=== PATIENT | female | born 1995 | race Caucasian/White ===

== ENCOUNTER 2016-10-12 15:45 | Emergency (ER) | payer MEDICAID ==
[~2016-10-12] VITALS: Ht 167.6 cm; Wt 71.5 kg
[~2016-10-12 15:45] MED LIST: OTC PAIN MED
[2016-10-12 18:28] VITALS: BP 113/68
== END 2016-10-12 19:02 | disposition home or self-care (01) ==
LOC: EMS 15:46
DX: S33.5XXA Sprain of ligaments of lumbar spine, initial encounter (principal); N39.0 Urinary tract infection, site not specified; X58.XXXA Exposure to other specified factors, initial encounter; Y93.89 Activity, other specified; Y92.89 Other specified places as the place of occurrence of the external cause; Y99.8 Other external cause status
CPT/HCPCS: 81025; 99283

== ENCOUNTER 2017-02-13 20:24 | Emergency (ER) | payer SELFPAY ==
[~2017-02-13] VITALS: Ht 167.6 cm; Wt 74.5 kg
[2017-02-13] MEDS ORDERED: CYCLOBENZAPRINE HCL 10 MG TABLET PO ONE (22:30)
[2017-02-13 23:07] VITALS: BP 150/118
[2017-02-13] MEDS ORDERED: KETOROLAC TROMETHAMINE 60 MG/2 ML VIAL IM ONE (23:15)
== END 2017-02-13 23:17 | disposition home or self-care (01) ==
LOC: EMS 20:26
DX: S16.1XXA Strain of muscle, fascia and tendon at neck level, initial encounter (principal); V43.52XA Car driver injured in collision with other type car in traffic accident, initial encounter; Y93.89 Activity, other specified; Y92.481 Parking lot as the place of occurrence of the external cause; Y99.8 Other external cause status
CPT/HCPCS: 70450; 72125; 81025; 96372; 99284; J1885

== ENCOUNTER 2017-08-03 14:16 | Emergency (ER) | payer SELFPAY ==
[~2017-08-03] VITALS: Ht 167.6 cm; Wt 75.5 kg
[2017-08-03] MEDS ORDERED: NORE1TAB34 PO (14:23)
[2017-08-03] MEDS ORDERED: KETOROLAC TROMETHAMINE 60 MG/2 ML VIAL IM ONE (15:30)
[2017-08-03 17:28] VITALS: BP 139/84
[2017-08-03 18:16] LABS: BILIRUBIN,URINE NEGATIVE (NEGATIVE); GLUCOSE, URINE (UA) NEGATIVE (NEGATIVE); KETONES,URINE NEGATIVE (NEGATIVE); LEUKOCYTE ESTERASE ,URINE SMALL (NEGATIVE); NITRATE,URINE NEGATIVE (NEGATIVE); OCCULT BLOOD,URINE MODERATE (NEGATIVE); PH,URINE 5.5 (5.0-8.0); PROTEIN,URINE NEGATIVE (NEGATIVE); UROBILINOGEN,URINE 0.2 mg/dL (<=1.0)
[2017-08-03 18:28] LABS: APPEARANCE,URINE HAZY (CLEAR)
[2017-08-03 18:34] LABS: BACTERIA,URINE Few /HPF (None Seen); RBC,URINE 0-2 /HPF (0-2); SQUAMOUS EPITHELIAL CELL,UR Few /LPF (None Seen)
== END 2017-08-03 18:35 | disposition home or self-care (01) ==
LOC: EMS 14:17
DX: S33.5XXA Sprain of ligaments of lumbar spine, initial encounter (principal); M62.830 Muscle spasm of back; X58.XXXA Exposure to other specified factors, initial encounter; Y93.89 Activity, other specified; Y92.89 Other specified places as the place of occurrence of the external cause; Y99.8 Other external cause status
CPT/HCPCS: 81001; 81025; 96372; 99283; J1885

== ENCOUNTER 2018-01-31 13:08 | Emergency (ER) | payer OTHER ==
[~2018-01-31] VITALS: Ht 167.6 cm; Wt 76.4 kg
[~2018-01-31 13:08] MED LIST changes: +NORE1TAB34 PO; -OTC PAIN MED
[2018-01-31] MEDS ORDERED: AMOX500T2 PO (13:13)
[2018-01-31] MEDS ORDERED: MO6B PO (13:14)
[2018-01-31 13:55] VITALS: BP 141/92
== END 2018-01-31 14:06 | disposition home or self-care (01) ==
LOC: EMS 13:09
DX: K08.89 Other specified disorders of teeth and supporting structures (principal)
CPT/HCPCS: 99283

== ENCOUNTER 2018-02-02 14:15 | Emergency (ER) | payer OTHER ==
[~2018-02-02] VITALS: Ht 167.6 cm; Wt 81.8 kg
[~2018-02-02 14:15] MED LIST changes: +AMOX500T2 PO; +MO6B PO; -NORE1TAB34 PO
[2018-02-02 16:10] VITALS: BP 151/86
== END 2018-02-02 16:17 | disposition home or self-care (01) ==
LOC: EMS 14:16
DX: K08.89 Other specified disorders of teeth and supporting structures (principal)
CPT/HCPCS: 99281

== ENCOUNTER 2018-04-12 18:09 | Emergency (ER) | payer OTHER ==
[~2018-04-12] VITALS: Ht 167.6 cm; Wt 85.0 kg
[2018-04-12] MEDS ORDERED: SUMA100T PO (18:22)
[2018-04-12] MEDS ORDERED: METOCLOPRAMIDE HCL 5 MG/ML 2 ML VIAL IVP ONE (18:30)
[2018-04-12] MEDS ORDERED: SODIUM CHLORIDE 0.9% 1,000 ML IV ONE (18:30)
[2018-04-12] MEDS ORDERED: DiphenhydrAMINE HCL 50 MG/ML VIAL IVP ONE (18:30)
[2018-04-12] MEDS ORDERED: KETOROLAC TROMETHAMINE 30 MG/ML VIAL IVP ONE (18:30)
[2018-04-12 19:26] VITALS: BP 130/100
== END 2018-04-12 19:48 | disposition home or self-care (01) ==
LOC: EMS 18:09
DX: G43.909 Migraine, unspecified, not intractable, without status migrainosus (principal); Z79.899 Other long term (current) drug therapy
CPT/HCPCS: 96374; 96375; 99284; J1200; J1885; J2765; J7030

== ENCOUNTER 2018-08-02 13:11 | Emergency (ER) | payer OTHER ==
[~2018-08-02] VITALS: Ht 172.7 cm; Wt 81.8 kg
[~2018-08-02 13:11] MED LIST changes: -AMOX500T2 PO; -MO6B PO; +SUMA100T PO
[2018-08-02] MEDS ORDERED: ACET-66 PO (13:14)
[2018-08-02] MEDS ORDERED: BIRTH CONTROL PO (13:14)
[2018-08-02] MEDS ORDERED: SODIUM CHLORIDE 0.9% 1,000 ML IV ONE (13:49)
[2018-08-02] MEDS ORDERED: METOCLOPRAMIDE HCL 5 MG/ML 2 ML VIAL IVP ONE (14:00)
[2018-08-02] MEDS ORDERED: KETOROLAC TROMETHAMINE 30 MG/ML VIAL IVP ONE (14:00)
[2018-08-02 14:12] LABS: APPEARANCE,URINE CLEAR (CLEAR); BILIRUBIN,URINE NEGATIVE (NEGATIVE); GLUCOSE, URINE (UA) NEGATIVE (NEGATIVE); KETONES,URINE TRACE mg/dL (NEGATIVE); LEUKOCYTE ESTERASE ,URINE NEGATIVE (NEGATIVE); NITRATE,URINE NEGATIVE (NEGATIVE); OCCULT BLOOD,URINE LARGE (NEGATIVE); PROTEIN,URINE TRACE (NEGATIVE); UROBILINOGEN,URINE 0.2 mg/dL (<=1.0)
[2018-08-02 14:20] LABS: BACTERIA,URINE Rare /HPF (None Seen); SQUAMOUS EPITHELIAL CELL,UR Rare /LPF (None Seen); WBC,URINE 0-2 /HPF (0-5)
[2018-08-02 14:20] LABS: BASOPHILS % (AUTO) 0.4 % (0.0-2.0); EOSINOPHILS % (AUTO) 0.2 % (1.0-6.0); HEMOGLOBIN 14.9 g/dL (12.0-16.0); LYMPHOCYTES # (AUTO) 1.5 K/uL (1.0-4.8); MEAN CORPUSCULAR HEMOGLOBIN 29.3 pg (26.0-34.0); MEAN CORPUSCULAR HGB CONC 33.1 G/dL (31.0-37.0); MEAN CORPUSCULAR VOLUME 88 fL (80-100); MONOCYTES # (AUTO) 0.3 K/uL (0.1-1.0); MONOCYTES % (AUTO) 2.8 % (2.0-9.0); NEUTROPHILS # (AUTO) 8.2 K/uL (1.8-7.7); NEUTROPHILS % (AUTO) 81.6 % (40.0-70.0); PLATELET COUNT (AUTO) 258 K/uL (150-450); RED CELL DISTRIBUTION WIDTH 13.9 % (11.5-14.5)
[2018-08-02 14:34] LABS: ANION GAP 13 mmol/L (8-16); CALCIUM, TOTAL 9.4 mg/dL (8.8-10.5); CARBON DIOXIDE 25 mmol/L (22-29); CHLORIDE 104 mmol/L (98-107); CREATININE 0.51 mg/dL (0.60-1.30); GLOMERULAR FILTR. RATE CALC > 60 mL/min (>60); GLUCOSE,RANDOM 94 mg/dL (70-110); POTASSIUM 3.9 mmol/L (3.5-5.1); SODIUM SERUM 142 mmol/L (136-145); UREA NITROGEN, BLOOD 8 mg/dL (7-18)
[2018-08-02 14:38] LABS: ALANINE AMINOTRANSFERASE 25 U/L (12-78); ALBUMIN 3.5 g/dL (3.4-5.0); ALKALINE PHOSPHATASE 73 U/L (46-116); ASPARTATE AMINOTRANSFERASE 20 U/L (15-37); BILIRUBIN,TOTAL 0.3 mg/dL (0.1-1.0); TOTAL PROTEIN, SERUM 7.8 g/dL (6.4-8.2)
[2018-08-02 16:12] VITALS: BP 139/87
== END 2018-08-02 16:53 | disposition home or self-care (01) ==
LOC: EMS 13:12
DX: G43.909 Migraine, unspecified, not intractable, without status migrainosus (principal); Z79.899 Other long term (current) drug therapy
CPT/HCPCS: 36415; 80053; 81001; 85025; 85379; 96374; 96375; 99283; J1885; J2765; J7030

== ENCOUNTER 2019-04-30 22:55 | Emergency (ER) | payer OTHER, MEDICAID ==
[~2019-04-30] VITALS: Ht 167.6 cm; Wt 86.4 kg
[~2019-04-30 22:55] MED LIST changes: +ACET-66 PO; +BIRTH CONTROL PO
[2019-05-01] MEDS ORDERED: SODIUM CHLORIDE 0.9% 1,000 ML IV ONE ×2 (00:15→01:30)
[2019-05-01 00:45] LABS: BASOPHILS % (AUTO) 0.6 % (0.0-2.0); EOSINOPHILS % (AUTO) 0.6 % (1.0-6.0); HEMATOCRIT 37.3 % (36-46); HEMOGLOBIN 12.1 g/dL (12.0-16.0); LYMPHOCYTES # (AUTO) 1.9 K/uL (1.0-4.8); MEAN CORPUSCULAR HGB CONC 32.5 G/dL (31.0-37.0); MEAN CORPUSCULAR VOLUME 83 fL (80-100); MONOCYTES # (AUTO) 0.8 K/uL (0.1-1.0); MONOCYTES % (AUTO) 8.8 % (2.0-9.0); NEUTROPHILS # (AUTO) 5.8 K/uL (1.8-7.7); PLATELET COUNT (AUTO) 200 K/uL (150-450); RED BLOOD CELL COUNT(AUTO) 4.49 MIL/uL (4.00-5.20); RED CELL DISTRIBUTION WIDTH 15.2 % (11.5-14.5)
[2019-05-01 00:55] LABS: ANION GAP 7 mmol/L (8-16); CALCIUM, TOTAL 8.6 mg/dL (8.8-10.5); CARBON DIOXIDE 29 mmol/L (22-29); CHLORIDE 108 mmol/L (98-107); CREATININE 0.77 mg/dL (0.60-1.30); GLOMERULAR FILTR. RATE CALC > 60 mL/min (>60); GLUCOSE,RANDOM 107 mg/dL (70-110); POTASSIUM 3.7 mmol/L (3.5-5.1); SODIUM SERUM 144 mmol/L (136-145); UREA NITROGEN, BLOOD 6 mg/dL (7-18)
[2019-05-01 01:06] LABS: ALANINE AMINOTRANSFERASE 14 U/L (12-78); ALBUMIN 3.5 g/dL (3.4-5.0); ALKALINE PHOSPHATASE 82 U/L (46-116); ASPARTATE AMINOTRANSFERASE 8 U/L (15-37); BILIRUBIN,TOTAL 0.2 mg/dL (0.1-1.0); HCG,QUANTITATIVE 174 mIU/mL (0-6); TOTAL PROTEIN, SERUM 7.1 g/dL (6.4-8.2)
[2019-05-01 01:52] LABS: APPEARANCE,URINE CLOUDY (CLEAR); BILIRUBIN,URINE NEGATIVE (NEGATIVE); GLUCOSE, URINE (UA) NEGATIVE (NEGATIVE); KETONES,URINE NEGATIVE (NEGATIVE); LEUKOCYTE ESTERASE ,URINE SMALL (NEGATIVE); NITRATE,URINE NEGATIVE (NEGATIVE); OCCULT BLOOD,URINE LARGE (NEGATIVE); PH,URINE 6.5 (5.0-8.0); PROTEIN,URINE TRACE (NEGATIVE); UROBILINOGEN,URINE 0.2 mg/dL (<=1.0)
[2019-05-01 01:59] LABS: AMPHET/METH SCREEN,URINE NEGATIVE (NEGATIVE); BARBITURATE SCREEN, URINE NEGATIVE (NEGATIVE); BENZODIAZEPINES SCREEN,URINE NEGATIVE (NEGATIVE); CANNABINOID SCREEN,URINE NEGATIVE (NEGATIVE); COCAINE SCREEN,URINE NEGATIVE (NEGATIVE); METHADONE SCREEN, URINE NEGATIVE (NEGATIVE); OPIATE SCREEN,URINE NEGATIVE (NEGATIVE); PHENCYCLIDINE SCREEN,URINE NEGATIVE (NEGATIVE)
[2019-05-01 02:01] LABS: RBC,URINE >100 /HPF (0-2)
[2019-05-01 02:02] LABS: BACTERIA,URINE None Seen /HPF (None Seen); SQUAMOUS EPITHELIAL CELL,UR Few /LPF (None Seen)
[2019-05-01] MEDS ORDERED: LORazepam 2 MG/ML VIAL IVP ONE (02:30)
[2019-05-01 03:03] VITALS: BP 141/91
== END 2019-05-01 03:20 | disposition home or self-care (01) ==
LOC: EMS 22:55
DX: R00.2 Palpitations (principal); E86.0 Dehydration; F41.9 Anxiety disorder, unspecified; R06.02 Shortness of breath; R00.0 Tachycardia, unspecified; G43.909 Migraine, unspecified, not intractable, without status migrainosus; Z87.59 Personal history of other complications of pregnancy, childbirth and the puerperium
CPT/HCPCS: 36415; 80053; 80307; 81001; 84702; 85025; 93005; 96361; 96374; 99285; J2060; J7030

== ENCOUNTER 2022-02-18 21:47 | Emergency (ER) | payer MEDICAID, OTHER ==
[~2022-02-18 21:47] MED LIST changes: -ACET-66 PO; -BIRTH CONTROL PO
[2022-02-18 21:51] VITALS: BP 141/78
[2022-02-18] MEDS ORDERED: CORTSOL AU (22:00)
== END 2022-02-18 22:10 | disposition home or self-care (01) ==
LOC: EMS 21:47
DX: H60.92 Unspecified otitis externa, left ear (principal); G43.909 Migraine, unspecified, not intractable, without status migrainosus; Z87.898 Personal history of other specified conditions
CPT/HCPCS: 99283

== ENCOUNTER 2023-01-11 20:20 | Emergency (ER) | payer OTHER ==
[~2023-01-11] VITALS: Ht 167.6 cm; Wt 88.6 kg
[~2023-01-11 20:20] MED LIST changes: +CORTSOL AU
[2023-01-11 20:22] VITALS: BP 137/105; PULSE 100; RESP 16; TEMP 99.2
[2023-01-11] MEDS ORDERED: IBUPROFEN 600 MG TABLET PO ONE (22:45)
== END 2023-01-11 22:58 | disposition home or self-care (01) ==
LOC: EMS 21:41
DX: H60.92 Unspecified otitis externa, left ear (principal); G43.909 Migraine, unspecified, not intractable, without status migrainosus
CPT/HCPCS: 99282; Z7502; Z7610

== ENCOUNTER 2023-04-28 19:46 | Emergency (ER) | payer OTHER ==
[~2023-04-28] VITALS: Ht 167.6 cm; Wt 104.5 kg
[~2023-04-28 19:46] MED LIST changes: -SUMA100T PO; +SUMA100T21 PO
[2023-04-28 20:19] VITALS: BP 135/85; PULSE 74; RESP 13; TEMP 98.3
[2023-04-28] MEDS ORDERED: METOCLOPRAMIDE HCL 5 MG/ML 2 ML VIAL IVP ONE (20:30)
[2023-04-28] MEDS ORDERED: KETOROLAC TROMETHAMINE 30 MG/ML VIAL IVP ONE (20:30)
[2023-04-28] MEDS ORDERED: SODIUM CHLORIDE 0.9% 1,000 ML IV ONE (20:30)
[2023-04-28] MEDS ORDERED: DiphenhydrAMINE HCL 50 MG/ML VIAL IVP ONE (20:30)
[2023-04-28 20:41] LABS: BASOPHILS % (AUTO) 0.5 % (0.0-2.0); EOSINOPHILS % (AUTO) 1.3 % (1.0-6.0); HEMATOCRIT 42.7 % (36-46); LYMPHOCYTES # (AUTO) 1.9 K/uL (1.0-4.8); LYMPHOCYTES % (AUTO) 24.8 % (22.0-44.0); MEAN CORPUSCULAR HEMOGLOBIN 29.1 pg (26.0-34.0); MEAN CORPUSCULAR HGB CONC 32.8 G/dL (31.0-37.0); MEAN CORPUSCULAR VOLUME 89 fL (80-100); MONOCYTES # (AUTO) 0.4 K/uL (0.1-1.0); MONOCYTES % (AUTO) 4.7 % (2.0-9.0); NEUTROPHILS # (AUTO) 5.2 K/uL (1.8-7.7); NEUTROPHILS % (AUTO) 68.7 % (40.0-70.0); PLATELET COUNT (AUTO) 250 K/uL (150-450); RED BLOOD CELL COUNT(AUTO) 4.81 MIL/uL (4.00-5.20); RED CELL DISTRIBUTION WIDTH 14.1 % (11.5-14.5); WHITE BLOOD COUNT (AUTO) 7.5 K/uL (4.5-11.0)
[2023-04-28 20:48] LABS: ANION GAP 7 mmol/L (8-16); CALCIUM, TOTAL 9.1 mg/dL (8.8-10.5); CARBON DIOXIDE 27 mmol/L (22-29); CHLORIDE 105 mmol/L (98-107); CREATININE 0.59 mg/dL (0.60-1.30); GLOMERULAR FILTR. RATE CALC > 60 mL/min (>60); GLUCOSE,RANDOM 138 mg/dL (70-110); POTASSIUM 3.4 mmol/L (3.5-5.1); SODIUM SERUM 139 mmol/L (136-145); UREA NITROGEN, BLOOD 10 mg/dL (7-18)
[2023-04-28 20:54] LABS: ALANINE AMINOTRANSFERASE 52 U/L (12-78); ALBUMIN 3.5 g/dL (3.4-5.0); ALKALINE PHOSPHATASE 112 U/L (46-116); ASPARTATE AMINOTRANSFERASE 25 U/L (15-37); BILIRUBIN,TOTAL 0.1 mg/dL (0.1-1.0); TOTAL PROTEIN, SERUM 7.7 g/dL (6.4-8.2)
== END 2023-04-28 23:04 | disposition home or self-care (01) ==
LOC: EMS 19:47
DX: G43.909 Migraine, unspecified, not intractable, without status migrainosus (principal)
CPT/HCPCS: 99284; 96374; 96375; 96361; 80053; 84703; 85025; 36415; J1200; J1885; J2765; J7030

== ENCOUNTER 2023-04-30 12:00 | Emergency (ER) | payer OTHER ==
[~2023-04-30] VITALS: Ht 167.6 cm; Wt 103.0 kg
[2023-04-30 12:05] VITALS: TEMP 98.1
[2023-04-30] MEDS ORDERED: METOCLOPRAMIDE HCL 5 MG/ML 2 ML VIAL IVP ONE (12:30)
[2023-04-30] MEDS ORDERED: DiphenhydrAMINE HCL 50 MG/ML VIAL IVP ONE (12:30)
[2023-04-30] MEDS ORDERED: ONDANSETRON HCL 4 MG/2 ML VIAL IVP ONE (12:30)
[2023-04-30 12:46] LABS: BASOPHILS % (AUTO) 0.4 % (0.0-2.0); EOSINOPHILS % (AUTO) 0.6 % (1.0-6.0); HEMOGLOBIN 14.4 g/dL (12.0-16.0); LYMPHOCYTES # (AUTO) 1.5 K/uL (1.0-4.8); LYMPHOCYTES % (AUTO) 17.6 % (22.0-44.0); MEAN CORPUSCULAR HEMOGLOBIN 29.6 pg (26.0-34.0); MEAN CORPUSCULAR HGB CONC 33.4 G/dL (31.0-37.0); MEAN CORPUSCULAR VOLUME 89 fL (80-100); MONOCYTES # (AUTO) 0.3 K/uL (0.1-1.0); MONOCYTES % (AUTO) 3.6 % (2.0-9.0); NEUTROPHILS # (AUTO) 6.7 K/uL (1.8-7.7); NEUTROPHILS % (AUTO) 77.8 % (40.0-70.0); PLATELET COUNT (AUTO) 241 K/uL (150-450); RED BLOOD CELL COUNT(AUTO) 4.86 MIL/uL (4.00-5.20); WHITE BLOOD COUNT (AUTO) 8.7 K/uL (4.5-11.0)
[2023-04-30 13:00] LABS: ANION GAP 9 mmol/L (8-16); CALCIUM, TOTAL 9.5 mg/dL (8.8-10.5); CARBON DIOXIDE 26 mmol/L (22-29); CHLORIDE 105 mmol/L (98-107); CREATININE 0.54 mg/dL (0.60-1.30); GLOMERULAR FILTR. RATE CALC > 60 mL/min (>60); GLUCOSE,RANDOM 108 mg/dL (70-110); POTASSIUM 3.6 mmol/L (3.5-5.1); SODIUM SERUM 140 mmol/L (136-145); UREA NITROGEN, BLOOD 7 mg/dL (7-18)
[2023-04-30 13:15] LABS: ALANINE AMINOTRANSFERASE 57 U/L (12-78); ALBUMIN 3.8 g/dL (3.4-5.0); ALKALINE PHOSPHATASE 106 U/L (46-116); ASPARTATE AMINOTRANSFERASE 28 U/L (15-37); BILIRUBIN,TOTAL 0.3 mg/dL (0.1-1.0); HCG,QUANTITATIVE < 1 mIU/mL (0-6)
[2023-04-30 14:25] VITALS: BP 133/82; PULSE 90; RESP 18
== END 2023-04-30 14:31 | disposition home or self-care (01) ==
LOC: EMS 12:29
DX: G43.909 Migraine, unspecified, not intractable, without status migrainosus (principal)
CPT/HCPCS: 99285; 96374; 70450; 96375; 80053; 84702; 85025; 36415; J1200; J2765; J2405

== ENCOUNTER 2023-07-08 22:33 | Emergency (ER) | payer OTHER ==
[~2023-07-08] VITALS: Ht 167.6 cm; Wt 104.0 kg
[2023-07-08 22:52] VITALS: TEMP 98.2
[2023-07-09 01:40] VITALS: BP 124/81; PULSE 97; RESP 17
[2023-07-09] MEDS ORDERED: AMOX500C2 PO (01:41)
[2023-07-09] MEDS ORDERED: IBUP-1492 PO (01:41)
[2023-07-09] MEDS ORDERED: IBUPROFEN 800 MG TABLET PO ONE (01:45)
[2023-07-09] MEDS ORDERED: AMOXICILLIN TRIHYDRATE 250 MG CAPSULE PO ONE (01:45)
== END 2023-07-09 01:52 | disposition home or self-care (01) ==
LOC: EMS 22:34
DX: H66.92 Otitis media, unspecified, left ear (principal); G43.909 Migraine, unspecified, not intractable, without status migrainosus
CPT/HCPCS: 99283

== ENCOUNTER 2023-07-29 23:24 | Emergency (ER) | payer OTHER ==
[~2023-07-29] VITALS: Ht 167.6 cm; Wt 104.5 kg
[~2023-07-29 23:24] MED LIST changes: +AMOX500C2 PO; -CORTSOL AU; +IBUP-1492 PO; -SUMA100T21 PO
[2023-07-29 23:29] VITALS: TEMP 98.3
[2023-07-30 00:58] VITALS: BP 165/96; PULSE 92; RESP 17
== END 2023-07-30 01:00 | disposition home or self-care (01) ==
LOC: EMS 23:24
DX: F41.9 Anxiety disorder, unspecified (principal); G43.909 Migraine, unspecified, not intractable, without status migrainosus; F32.A Depression, unspecified
CPT/HCPCS: 99281; Z7502

== ENCOUNTER 2023-11-10 17:04 | Emergency (ER) | payer OTHER ==
[~2023-11-10] VITALS: Ht 170.2 cm; Wt 98.2 kg
[2023-11-10] MEDS ORDERED: SEMA0.258 SQ (17:10)
[2023-11-10 17:12] VITALS: BP 139/84; PULSE 101; RESP 18; TEMP 98.3
[2023-11-10] MEDS ORDERED: IBUP-1554 PO (18:20)
[2023-11-10] MEDS ORDERED: ACET-66 PO (18:20)
[2023-11-10] MEDS ORDERED: METH-659 PO (18:20)
[2023-11-10] MEDS: IBUPROFEN 600 MG TABLET PO ONE (18:29)
[2023-11-10] MEDS: METHOCARBAMOL 500 MG TABLET PO ONE (18:30)
== END 2023-11-10 18:46 | disposition home or self-care (01) ==
LOC: EMS 17:04
DX: M62.838 Other muscle spasm (principal); F41.9 Anxiety disorder, unspecified; G43.909 Migraine, unspecified, not intractable, without status migrainosus
CPT/HCPCS: 99283

== ENCOUNTER 2024-06-05 17:09 | Emergency (ER) | payer OTHER ==
[~2024-06-05] VITALS: Ht 165.1 cm; Wt 84.1 kg
[~2024-06-05 17:09] MED LIST changes: +ACET-66 PO; -AMOX500C2 PO; -IBUP-1492 PO; +IBUP-1554 PO; +METH-659 PO; +SEMA0.258 SQ
[2024-06-05] MEDS ORDERED: CIPOTIC AS (19:45)
[2024-06-05] MEDS ORDERED: BACTDSB PO (19:45)
[2024-06-05 20:11] VITALS: BP 129/77; PULSE 70; RESP 18; TEMP 97.3; O2SAT 99
== END 2024-06-05 20:15 | disposition home or self-care (01) ==
LOC: EMS 17:09
DX: H66.92 Otitis media, unspecified, left ear (principal); H60.92 Unspecified otitis externa, left ear; F41.9 Anxiety disorder, unspecified; G43.909 Migraine, unspecified, not intractable, without status migrainosus
CPT/HCPCS: 99283; Z7502

== ENCOUNTER 2025-02-26 19:39 | Emergency (ER) | payer OTHER ==
[~2025-02-26] VITALS: Ht 167.6 cm; Wt 94.5 kg
[~2025-02-26 19:39] MED LIST changes: -ACET-66 PO; +BACTDSB PO; +CIPOTIC AS; -METH-659 PO
[2025-02-26] MEDS: IBUPROFEN 600 MG TABLET PO ONE (21:57)
[2025-02-26] MEDS: ACETAMINOPHEN 500 MG TABLET PO ONE (21:57)
[2025-02-26] MEDS ORDERED: ACET-66 PO (22:02)
[2025-02-26 22:22] VITALS: BP 124/67; PULSE 78; RESP 17; TEMP 97.3; O2SAT 100
== END 2025-02-26 22:39 | disposition home or self-care (01) ==
LOC: EMS 19:39
DX: M25.531 Pain in right wrist (principal); G56.01 Carpal tunnel syndrome, right upper limb; R20.0 Anesthesia of skin; F41.9 Anxiety disorder, unspecified
CPT/HCPCS: 99283

== ENCOUNTER 2025-06-14 11:18 | Emergency (ER) | payer OTHER ==
[~2025-06-14] VITALS: Ht 167.6 cm; Wt 91.8 kg
[~2025-06-14 11:18] MED LIST changes: +ACET-66 PO
[2025-06-14 11:29] VITALS: TEMP 98.4
[2025-06-14] MEDS: NAPROXEN 500 MG TABLET PO ONE (13:09)
[2025-06-14] MEDS: ONDANSETRON 4 MG TABLET PO ONE (13:09)
[2025-06-14 14:00] VITALS: BP 147/95; PULSE 99; RESP 17; O2SAT 99
[2025-06-14] MEDS ORDERED: ONDA-104 PO (14:13)
== END 2025-06-14 14:31 | disposition home or self-care (01) ==
LOC: EMS 11:19
DX: G43.909 Migraine, unspecified, not intractable, without status migrainosus (principal); R11.0 Nausea
CPT/HCPCS: 99283; Q0162